=== PATIENT | male | born 1990 ===

== ENCOUNTER 2017-10-05 21:30 | Emergency (ER) | payer SELFPAY ==
[2017-10-05 22:19] VITALS: BP 119/66; PULSE 75; TEMP 98; O2SAT 96
--- NOTE | 2017-10-05 22:48 | C.PDOC ---
History Of Present Illness 27 year old male with a Hx of callus to the left hand for the past few weeks presents to the ER with a complaint of redness and swelling to the callus area. Patient states he was camping over the weekend and was doing a lot of manual labor, he concerned the area is infected which prompted visit. Denies weakness or numbness of the left hand. Time Seen by Provider: 10/05/17 22:22 Chief Complaint (Nursing): Abnormal Skin Integrity History Per: Patient History/Exam Limitations: no limitations Onset/Duration Of Symptoms: Days Current Symptoms Are (Timing): Still Present Location Of Injury: Left: Hand Quality Of Symptoms: Painful, Swollen Recent travel outside of the [place]: No Past Medical History Reviewed: Historical Data, Nursing Documentation, Vital Signs Vital Signs: Last Vital Signs Temp 98.0 F 10/05/17 22:14 Pulse 75 10/05/17 22:14 Resp 20 10/05/17 22:58 BP 119/66 10/05/17 22:14 Pulse Ox 96 10/06/17 03:07 - Medical History PMH: Anxiety Family History: States: Unknown Family Hx - Social History Hx Alcohol Use: Yes Hx Substance Use: Yes (MARIJUANA) - Immunization History Hx Tetanus Toxoid Vaccination: No Hx Influenza Vaccination: No Hx Pneumococcal Vaccination: No Review Of Systems Constitutional: Negative for: Fever, Chills Musculoskeletal: Positive for: Hand Pain Skin: Positive for: Other (Swelling/redness) Neurological: Negative for: Weakness, Numbness Physical Exam - Physical Exam Appears: Non-toxic, No Acute Distress Skin: Warm, Dry Head: Atraumatic, Normacephalic Eye(s): bilateral: Normal Inspection Extremity: Capillary Refill (<2 seconds), No Deformity, Other (Callus to palmar aspect of DIP area of left 2nd finger with localized erythema and warmth, ecchymotic area lateral to the callus. No dorsal erythema, no drainage, no fluctuance, no streaking. remainder of hand and fingers intact) Pulses: Left Radial: Normal, Right Radial: Normal Neurological/Psych: Oriented x3, Normal Speech, Normal Motor, Normal Sensation ED Course And Treatment O2 Sat by Pulse Oximetry: 96 (Room air) Pulse Ox Interpretation: Normal Progress Note: Patient finger appears mainly callus w/ localized erythema, cannot rule out cellulitis; will discharge on keflex prophylactically and instructed to follow up with PMD. Disposition Counseled Patient/Family Regarding: Diagnosis, Need For Followup, Rx Given - Disposition Referrals: Chandu Childers MD [Staff Provider] - Disposition: HOME/ ROUTINE Disposition Time: 22:45 Condition: STABLE Additional Instructions: May apply ICE to area Use Dr Catherine corn removal Elevate hand Follow up with hand surgeon Return to ER if worse Prescriptions: Cephalexin [cephalexin] 500 mg PO QID #20 cap Forms: [facility] (Malagasy), General Discharge Instructions - Clinical Impression Clinical Impression: Callus, Cellulitis of finger of left hand - PA / BINGO USHER / Resident Statement MD/DO has reviewed & agrees with the documentation as recorded. - Scribe Statement The provider has reviewed the documentation as recorded by the Scribelana Castaneda All medical record entries made by the Luisaibelana were at my direction and personally dictated by me. I have reviewed the chart and agree that the record accurately reflects my personal performance of the history, physical exam, medical decision making, and the department course for this patient. I have also personally directed, reviewed, and agree with the discharge instructions and disposition.
[2017-10-05 22:59] VITALS: RESP 20
== END 2017-10-05 22:59 | disposition home or self-care (01) ==
LOC: C.ER 21:30
DX: L03.012 Cellulitis of left finger (principal); L84 Corns and callosities

== ENCOUNTER 2017-10-08 21:20 | Emergency (ER) | payer BC ==
[2017-10-08 21:39] VITALS: BP 131/77; PULSE 95; TEMP 98.4; O2SAT 100
[2017-10-08] MEDS ORDERED: Lidocaine 2% Inj (20ml) INFIL ONE (21:57)
[2017-10-08] MEDS ORDERED: Lidocaine 2% Inj (20ml) ONE (22:01)
--- NOTE | 2017-10-08 22:07 | C.PDOC ---
History Of Present Illness Patient is a 27 y/o male who presents to the ED with a complaint of left second finger pain for the last 2 weeks. Patient reports the pain started possible after puncture wound from staple while moving. It then began to form a callus which progressively swelled. Patient was evaluated at [facility] on 10/05 and received antibiotics that were started yesterday; today, the swelling worsened, prompting ED visit. RIght hand dominant. No change in sensation. No discharge from the area. Time Seen by Provider: 10/08/17 21:44 Chief Complaint (Nursing): Abnormal Skin Integrity History Per: Patient History/Exam Limitations: no limitations Onset/Duration Of Symptoms: Days (2 weeks) Current Symptoms Are (Timing): Still Present Quality Of Symptoms: Painful, Swollen Recent travel outside of the [place]: No Past Medical History Reviewed: Historical Data, Nursing Documentation, Vital Signs Vital Signs: Last Vital Signs Temp 98.4 F 10/08/17 21:35 Pulse 95 H 10/08/17 21:35 Resp 20 10/08/17 23:35 BP 131/77 10/08/17 21:35 Pulse Ox 100 10/08/17 23:14 - Medical History PMH: Anxiety Denies: Chronic Kidney Disease Surgical History: No Surg Hx Family History: States: Unknown Family Hx - Social History Hx Alcohol Use: Yes Hx Substance Use: Yes (MARIJUANA) - Immunization History Hx Tetanus Toxoid Vaccination: No Hx Influenza Vaccination: No Hx Pneumococcal Vaccination: No Review Of Systems Skin: Positive for: Other (swelling and pain to left second finger) Physical Exam - Physical Exam Appears: Well, Non-toxic, No Acute Distress Skin: Other (left mid-phalanx swelling and erythema with central fluctuance and visible purulent collection, no streaking) Head: Atraumatic, Normacephalic Eye(s): bilateral: Normal Inspection, EOMI Nose: Normal Oral Mucosa: Moist Chest: Symmetrical Respiratory: No Accessory Muscle Use Extremity: No Normal ROM (decreased ROM secondary to pain ), Tenderness (To mid phalanx), Capillary Refill (< 2 sec) Pulses: Left Radial: Normal, Right Radial: Normal Neurological/Psych: Oriented x3, Normal Speech, Normal Sensation ED Course And Treatment O2 Sat by Pulse Oximetry: 100 Progress Note: Case discussed with Dr Benavides, agreed upon ID and treat in ER. Plan: Motrin, Lidocaine 2%, and Adacel administered. I&D procedure ensued. On reassessment, patient is resting comfortably, and is in no acute distress. Patient was instructed to follow up with physician/clinic in 1-2 days for further evaluation. Instructed wound check in 2 days or sooner if symtpoms persist or worsen. - Incision & Drainage Of Abscess Anesthesia: Lidocaine 2% Prep Used: Sterile Water, Betadine Procedure: Incised W/Scalpel Blade#: (11), Drained Pus, Irrigated Cavity W/ Saline, Probed To Break Up Loculations, Cultures Obtained And Sent To Lab Disposition - Disposition Referrals: Chandu Childers MD [Staff Provider] - Disposition: HOME/ ROUTINE Disposition Time: 23:13 Condition: STABLE Additional Instructions: Wound check in 2 days. Follow up with hand specialist for further evaluation. Return to ER if symptoms persist or worsen. Prescriptions: Clindamycin [Cleocin] 300 mg PO Q6 #28 cap traMADol [Ultram] 50 mg PO Q8 #14 tab Instructions: Abscess Incision and Drainage (ED) Forms: [employer] (Hungarian) - Clinical Impression Clinical Impression: Abscess - Scribe Statement The provider has reviewed the documentation as recorded by the Scribe Rae Jones All medical record entries made by the Scribe were at my direction and personally dictated by me. I have reviewed the chart and agree that the record accurately reflects my personal performance of the history, physical exam, medical decision making, and the department course for this patient. I have also personally directed, reviewed, and agree with the discharge instructions and disposition.
[2017-10-08] MEDS ORDERED: Bacitracin 500 Units/gm Oint Foilpak UD ONE (23:14)
[2017-10-08] MEDS ORDERED: Oxycodone/Acetaminophen 5/325 mg Tab PO STA (23:16)
[2017-10-08] MEDS ORDERED: Oxycodone/Acetaminophen 5/325 mg Tab ONE (23:22)
[2017-10-08 23:36] VITALS: RESP 20
== END 2017-10-08 23:35 | disposition home or self-care (01) ==
LOC: C.ER 21:20
DX: L02.512 Cutaneous abscess of left hand (principal); Z23 Encounter for immunization